=== PATIENT | male | born 1965 | race Caucasian/White ===

== ENCOUNTER 2016-05-19 13:01 | Emergency (ER) | payer BC ==
--- NOTE | 2016-05-19 13:08 | Emergency Department Record ---
History of Present Illness - General Chief Complaint: Back Pain/Injury Stated Complaint: LOWER BACK COW Time Seen by Provider: 05/19/16 13:03 Source: Patient Mode of Arrival: EMS Limitations: No limitations - History of Present Illness Initial Comments: 51 yo male presents to ED with a CC of mid-low back pain following being trampled by a cow this afternoon. Patient denies injury to the head or neck, and the patient denies numbness, tingling, or weakness to the extremities. Patient denies health problems at his baseline. MD Complaint: Back pain Onset/Timin -: Hour(s) Similar Symptoms Previously: No Place: Home Radiation: None Severity: Moderate Severity scale (1-10): 6 Quality: Aching, Other Improves With: None Worsens With: Other (leg raise) Context: Other Associated Symptoms: Denies other symptoms - Related Data Previous Rx's Medication Instructions Recorded Diazepam [Valium] 5 mg PO Q8H PRN #20 tab 05/19/16 Hydrocodone/Acetaminophen [[place] 1 tab PO Q6H PRN #20 tab 05/19/16 5mg/325mg] Allergies Allergy/AdvReac Type Severity Reaction Status Date / Time No Known Allergies Allergy HYPERSENSIT Verified 05/19/16 13:11 IVITY Review of Systems Constitutional: Denies: Chills, Fever, Malaise, Night sweats Eyes: Denies: Eye discharge, Eye pain ENT: Denies: Congestion, Ear pain, Epistaxis Respiratory: Denies: Cough, Dyspnea Cardiovascular: Denies: Chest pain, Dyspnea on exertion Endocrine: Denies: Fatigue, Heat or cold intolerance Gastrointestinal: Denies: Abdominal pain, Nausea, Vomiting Genitourinary: Denies: Incontinence, Retention Musculoskeletal: Reports: Back pain. Denies: Arthralgia, Gout, Joint swelling Skin: Reports: Bruising (back). Denies: Change in color, Change in hair/nails Neurological: Denies: Abnormal gait, Confusion, Headache, Seizure Psychiatric: Denies: Anxiety Hematological/Lymphatic: Denies: Anemia, Blood Clots Physical Exam - General General Appearance: Alert, Oriented x3, Cooperative, Mild distress, Other ( standing up, well appearing on examination) Limitations: No limitations - Head Head exam: Atraumatic, Normocephalic, Normal inspection Head exam detail: negative: Abrasion, Contusion, Osuna's sign, General tenderness, Hematoma, Laceration - Eye Eye exam: Normal appearance. negative: Conjunctival injection, Periorbital swelling, Periorbital tenderness, Scleral icterus - ENT Ear exam: negative: Auricular hematoma, Auricular trauma Nasal Exam: negative: Active bleeding, Discharge, Dried blood, Foreign body Mouth exam: negative: Drooling, Laceration, Muffled voice, Tongue elevation - Neck Neck exam: Normal inspection. negative: Meningismus, Tenderness - Respiratory Respiratory exam: Normal lung sounds bilaterally. negative: Rales, Respiratory distress, Rhonchi, Stridor - Cardiovascular Cardiovascular Exam: Regular rate, Normal rhythm, Normal heart sounds - GI/Abdominal GI/Abdominal exam: Soft. negative: Rebound, Rigid, Tenderness - Rectal Rectal exam: Deferred - exam: Deferred - Extremities Extremities exam: Normal inspection. negative: Calf tenderness, Pedal edema, Tenderness - Back Back exam: Reports: Paraspinal tenderness, Tenderness, Other (Abrasions/ ecchymosis and pain over the right upper lumbar region laterally) - Neurological Neurological exam: Alert, Normal gait, Oriented X3 - Psychiatric Psychiatric exam: Normal affect, Normal mood - Skin Skin exam: Normal color. negative: Abrasion Type of lesion: negative: abrasion Course - Reevaluation(s) Reevaluation #1: 05/19/16 14:12 Labs reviewed and are grossly unremarkable for an acute process. CT Abdomen/Pelvis: Non-displaced fractures of the traverse processes of L2/L3 bilaterally, contusion to the left low back. CT Chest: No acute traumatic injury, ascending aortic dilation measuring 4.1 cm , recommended follow-up as an outpatient. Patient was updated on all results, pain is well controlled without analgesia in the ED, and the patient appears stable for discharge at this time with [place] and Valium as needed as well as outpatient evaluation for his aortic dilation. Patient verbalizes all instructions, and appears stable for discharge at this time. Medical Decision Making - Lab Data Result diagrams: 05/19/16 13:15 05/19/16 13:15 Disposition Disposition: Discharge Clinical Impression: Fracture of transverse process of lumbar vertebra Qualifiers: Encounter type: initial encounter Fracture type: closed Qualified Code(s): S32.008A - Other fracture of unspecified lumbar vertebra, initial encounter for closed fracture Aortic aneurysm Qualifiers: Aortic location: thoracic aorta Presence of rupture: without rupture Qualified Code(s): I71.2 - Thoracic aortic aneurysm, without rupture Disposition: Home, Self-Care Condition: (2) Stable Instructions: Thoracolumbar Fracture (ED) Additional Instructions: return to ED if your symptoms worsen or if you have any concerns. Valium and [place] as directed for your pain symptoms. Follow-up with your family doctor in 3-5 days as directed. Follow-up with your family doctor for further evaluation of your aortic aneurysm. Prescriptions: Hydrocodone/Acetaminophen [[place] 5mg/325mg] 1 tab PO Q6H PRN #20 tab PRN Reason: Pain - General Diazepam [Valium] 5 mg PO Q8H PRN #20 tab PRN Reason: Pain - Moderate (5-7) Forms: Patient Portal Access Time of Disposition: 14:22
[2016-05-19 13:23] LABS: BASO % 0.3 % (0-6); EOS % 1.4 % (0-6); GRAN % 73.8 % (47-80); HEMATOCRIT 42.3 % (42.0-52.0); HEMOGLOBIN 14.4 gm/dl (14.0-18.0); LYMPH % 18.6 % (16-45); MEAN CELL VOLUME 90.8 fl (81-97); MEAN CORPUSCULAR HEMOGLOBIN 30.9 pg (27-33); MEAN PLATELET VOLUME 9.7 fl (7.4-10.4); MONO % 5.9 % (0-9); PLATELET COUNT 201 K/uL (130-400); RED BLOOD COUNT 4.66 M/uL (4.40-5.70); WHITE BLOOD COUNT W/O DIFF 7.2 K/uL (4.2-12.2)
[2016-05-19 13:35] LABS: ALB/GLOB RATIO 1.4 (1.1-1.8); ALBUMIN 4.1 gm/dL (3.5-5.0); ALKALINE PHOSPHATASE 78 U/L (38-126); ALT/SGPT 30 U/L (21-72); ANION GAP 13.8 (7-16); AST/SGOT 22 U/L (17-59); BLOOD UREA NITROGEN 10 mg/dL (9-20); CARBON DIOXIDE 26.2 mmol/L (22-30); CREATININE 0.8 mg/dL (0.66-1.25); EST GLOMERULAR FILTRATION RATE > 60 ml/min; GLUCOSE,RANDOM 114 mg/dL (70-110); TOTAL PROTEIN 7.1 gm/dL (6.3-8.2)
[2016-05-19] MEDS ORDERED: HYDROCODONE/APAP 5/325MG TABLET PO ONE (14:28)
[2016-05-19] MEDS ORDERED: DIAZEPAM 5 MG TABLET PO ONE (14:28)
== END 2016-05-19 14:41 | disposition home or self-care (01) ==
LOC: ER 13:01
DX: S32.029A Unspecified fracture of second lumbar vertebra, initial encounter for closed fracture (principal); S32.039A Unspecified fracture of third lumbar vertebra, initial encounter for closed fracture; I71.2 Thoracic aortic aneurysm, without rupture; W55.29XA Other contact with cow, initial encounter; Y92.009 Unspecified place in unspecified non-institutional (private) residence as the place of occurrence of the external cause
CPT/HCPCS: 99283; 99284; 85025; 80053; 71250; 74177; Q9967; J3490

== ENCOUNTER 2018-07-10 11:58 | Day surgery (SDC) | payer BC ==
[2018-07-10] MEDS ORDERED: PROPOFOL 10 MG/ML VIAL IV ONE (11:59)
[2018-07-10] MEDS ORDERED: LIDOCAINE 2% MDV (20MG/ML) 20ML VIAL IV ONE (11:59)
--- NOTE | 2018-07-11 07:51 | Operative Note ---
DATE OF SURGERY: 07/10/2018 OPERATION: COLONOSCOPY with biopsy and photo. PREOPERATIVE DIAGNOSIS: Hematochezia and abnormal imaging suggesting rectal mass. POSTOPERATIVE DIAGNOSIS: Circumferential distal rectal mass. PROCEDURE: After informed consent was obtained from the patient, he was placed in the left lateral decubitus position in the endoscopy suite, sedated and monitored by the department of anesthesia. Digital rectal exam revealed a palpable mass which was quite firm. A well-lubricated [id number] colonoscope was inserted into the rectum and upon insertion of the endoscope, there was noted to be a circumferential mass. This mass was traversable with a scope and the pediatric colonoscope was advanced to the cecum. The cecum, cecal bulb, appendiceal orifice, ileocecal valve, ascending colon, transverse colon, descending colon, and sigmoid colon were unremarkable. The rectal mass was biopsied multiple times. No excessive bleeding was noted. I did not perform a J-turn maneuver due to the mass. The rectal ampulla deflated, and the endoscope was removed. RECOMMENDATIONS: We will await the results of tissue histology but it is highly suspicious and consistent with a rectal adenocarcinoma. We will refer the patient to Colorectal Surgery for further treatment. As always, thank you for allowing me to participate in the healthcare of your patients. CC: PAMELLA FIGUEROA MD, FACP MTDD
== END 2018-07-10 13:50 | disposition home or self-care (01) ==
LOC: HOP 11:58
PROVIDERS: ATTEND Internal Medicine Gastroenterology
DX: K92.1 Melena (principal); R93.3 Abnormal findings on diagnostic imaging of other parts of digestive tract; C20 Malignant neoplasm of rectum